=== PATIENT | male | born 1945 | race Caucasian/White ===

== ENCOUNTER 2017-10-03 22:40 | Emergency (ER) | payer MEDICARE ==
[~2017-10-03] VITALS: Ht 177.8 cm; Wt 86.2 kg
[2017-10-03 23:11] LABS: BASO % 0.1 % (0.0-1.0); EOS % 0.1 % (1.0-4.0); HEMATOCRIT 43.2 % (42.0-52.0); HEMOGLOBIN 14.8 g/dl (14.0-18.0); LYMPH % 6.7 % (27.0-41.0); MEAN CELL VOLUME 89.6 fl (80.0-94.0); MEAN CORPUSCULAR HGB 30.7 pg (27.0-31.0); MEAN CORPUSCULAR HGB CONC 34.3 g/dl (33.0-37.0); MEAN PLATELET VOLUME 10.3 fl (9.6-12.3); MONO # 0.9 10*3/uL (0.1-1.0); MONO % 5.9 % (3.0-9.0); NEUT # 13.5 10*3/uL (2.3-7.9); NEUT % 86.7 % (47.0-73.0); PLATELET COUNT AUTOMATED 262 10*3/uL (130-400); RED BLOOD COUNT 4.82 10*6/uL (4.50-5.90); RED CELL DISTRI WIDTH 12.6 % (0-14.5); WHITE BLOOD COUNT 15.5 10*3/uL (4.8-10.8)
[2017-10-03 23:28] LABS: CREATININE 1.48 mg/dL (0.70-1.30)
[2017-10-03 23:30] LABS: TROPONIN I 11.8 ng/ml (<0.045)
[2017-10-04 00:18] LABS: ACT PARTIAL THROMBO TIME 201.4 SECONDS (20.8-31.5)
== END 2017-10-03 23:44 | disposition short-term general hospital (02) ==
LOC: ED 22:40
PROVIDERS: Emergency Medicine Emergency Medical Services
DX: I21.9 Acute myocardial infarction, unspecified (principal); Z91.040 Latex allergy status

== ENCOUNTER 2024-03-05 15:53 | Emergency (ER) | payer MEDICARE ==
[~2024-03-05] VITALS: Ht 175.2 cm; Wt 77.1 kg
[2024-03-05] MEDS ORDERED: ACETAMINOPHEN 325 MG TAB PO ONE (16:25)
[2024-03-05] MEDS ORDERED: DEXAMETHASONE 4 MG TAB PO ONE (17:05)
[2024-03-05] MEDS ORDERED: DEXAMETHASONE6 MG PO (17:12)
[2024-03-05] MEDS ORDERED: PAXLOVID 300-11 EAC3 PO (17:12)
[2024-03-05] MEDS ORDERED: TYLENOL EXTRA500 MG PO (17:12)
== END 2024-03-05 17:50 | disposition home or self-care (01) ==
LOC: ED 15:53
DX: U07.1 COVID-19 (principal); R50.9 Fever, unspecified; I25.10 Atherosclerotic heart disease of native coronary artery without angina pectoris; F03.90 Unspecified dementia, unspecified severity, without behavioral disturbance, psychotic disturbance, mood disturbance, and anxiety; I10 Essential (primary) hypertension; Z91.040 Latex allergy status